=== PATIENT | male | born 1985 | race African-American/Black ===

== ENCOUNTER 2019-08-22 18:30 | Emergency (ER) | payer SELFPAY ==
[~2019-08-22] VITALS: Ht 170.2 cm; Wt 68.0 kg
[2019-08-22] MEDS ORDERED: PREDNISONE 20MG TABLET PO ONE (19:30)
[2019-08-22 19:36] VITALS: BP 128/97
== END 2019-08-22 19:40 | disposition home or self-care (01) ==
LOC: ER 18:30
DX: J45.909 Unspecified asthma, uncomplicated (principal); Z76.0 Encounter for issue of repeat prescription
CPT/HCPCS: 99282; J7512